=== PATIENT | male | born 1965 | race Caucasian/White ===

== ENCOUNTER 2017-02-25 23:15 | Emergency (ER) | payer OTHER ==
[2017-02-26 00:21] VITALS: BP 144/89; PULSE 70; TEMP 98.7; BMI 25.0
[2017-02-26] MEDS ORDERED: IBUPROFEN 600 MG TABLET (FP) PO ONE ×2 (00:36→00:57)
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
== END 2017-02-26 01:29 | disposition home or self-care (01) ==
LOC: JER 23:15
DX: S13.4XXA Sprain of ligaments of cervical spine, initial encounter (principal); V43.52XA Car driver injured in collision with other type car in traffic accident, initial encounter; Y93.89 Activity, other specified; Y92.410 Unspecified street and highway as the place of occurrence of the external cause; Z21 Asymptomatic human immunodeficiency virus [HIV] infection status
CPT/HCPCS: 71020-TC; 99281-25